=== PATIENT | female | born 1985 | race Caucasian/White ===

== ENCOUNTER 2018-10-12 10:57 | Day surgery (SDC) | payer SELFPAY ==
[~2018-10-12] VITALS: Ht 162.6 cm; Wt 93.0 kg
[~2018-10-12 10:57] MED LIST: LR 1,000 ML IV SCH; MULTCAP PO
[2018-10-12 11:30] LABS: URINE PREG TEST NEGATIVE (NEGATIVE)
[2018-10-12] MEDS ORDERED: PROPOFOL 200 MG/20 ML VIAL As Ordered ONE (12:00)
[2018-10-12] MEDS ORDERED: LIDOCAINE 2% INJ 100 MG/5 ML SDV (FOR ANES.) As Ordered ONE (12:01)
[2018-10-12] MEDS ORDERED: fentaNYL 250 MCG/5 ML INJECTION (J3010) As Ordered ONE (12:01)
[2018-10-12] MEDS ORDERED: dexameTHASONE 4 MG/ML 1ML VIAL (J1100) As Ordered ONE (12:01)
[2018-10-12] MEDS ORDERED: KETOROLAC 60 MG/2 ML VIAL (J1885) As Ordered ONE (12:01)
[2018-10-12] MEDS ORDERED: ONDANSETRON 4MG/2ML VIAL (J2405) As Ordered ONE (12:01)
[2018-10-12] MEDS ORDERED: SUGAMMADEX SODIUM 500 MG/5 ML VIAL (BRIDION) As Ordered ONE (12:01)
[2018-10-12] MEDS ORDERED: ROCURONIUM BROMIDE 50 MG/5 ML VIAL As Ordered ONE (12:01)
[2018-10-12] MEDS ORDERED: MIDAZOLAM INJ 2 MG/2 ML VIAL (J2250) As Ordered ONE (12:02)
[2018-10-12] MEDS ORDERED: LIDOCAINE W/EPINEPHRINE 1% 20ML VIAL As Ordered ONE (12:50)
[2018-10-12] MEDS ORDERED: HYDROMORPHONE HCL 0.5 MG/ 0.5 ML SYRINGE (J1170 PER 1) As Ordered ONE (15:14)
[2018-10-12] MEDS ORDERED: fentaNYL 100 MCG/2 ML INJECTION (J3010) IV PRN (15:30)
[2018-10-12] MEDS ORDERED: NORCO, ANEXSIA 5/325MG TABLET (HYDROcodone/ACETAMINOPHEN) PO PRN ×2 (15:30→16:30)
[2018-10-12] MEDS ORDERED: HYDROMORPHONE HCL 0.5 MG/ 0.5 ML SYRINGE (J1170 PER 1) IV PRN (15:30)
[2018-10-12] MEDS: IBUPROFEN 600 MG TAB PO SCH ×2 (20:45→21:42)
[2018-10-12] MEDS ORDERED: IBUPROFEN 600 MG TAB As Ordered ONE (20:48)
[2018-10-12 21:45] VITALS: BP 105/66
--- NOTE | 2018-10-15 14:30 | RO ---
DATE OF PROCEDURE: 10/12/2018 PREOPERATIVE DIAGNOSIS: Incarcerated ventral hernia. POSTOPERATIVE DIAGNOSIS: Incarcerated ventral hernia and incarcerated recurrent umbilical hernia. SURGEON: Dr. Juanjo Berg MUNITIONS WORKER: Kenia Nunez ANESTHESIA: General. ESTIMATED BLOOD LOSS: 10. COMPLICATIONS: None. INDICATIONS FOR PROCEDURE: The patient is a 33-year-old female with a large lump inferior to her umbilicus and found to have a large hernia. Recommendation was to proceed with laparoscopic repair. Risks and benefits of the procedure, not limited to but including bleeding, infection, hernia recurrence, hernia formation, damage to surrounding structures, and need for further surgery were discussed in detail with the patient and informed consent was obtained and the procedure was planned. DESCRIPTION OF PROCEDURE: The patient was brought back to operating room seven. After sufficient sedation the abdomen sterilely prepped and draped. Next a time-out was done to confirm proper patient and proper procedure. A 5 mm incision made in the left upper quadrant and Veress needle was inserted. The abdomen was insufflated to 15 mmHg. Next the Veress needle was removed. A 5 mm OptiVu port was used to gain access to the abdomen. Once the abdomen was entered, there were two large hernias that were identified. Another 5 mm port was then placed in the left lower quadrant. Small bowel was entering a large defect inferior to the umbilicus in the midline. I was able to grab onto the small bowel and gently return it back inside the abdomen. I would say at least 25% of the small intestine was within this large hernia sac. Once that was back inside, there was still some omentum that was adhesed up inside of there. I was able to gently retract that out using the Enseal. Once that was completed and all the hernia sac contents were evacuated from there, I was able to take down some preperitoneal adhesions inferiorly to that using the Enseal to create a large surface on the fascia to place a mesh. Next, there was an umbilical defect as well about the same size containing the falciform ligament and what appeared to be up balled up portion of mesh from a previous repair. I was able to remove the majority of the previous mesh that was balled up as well as some omentum that was adhered up inside of it. Once all that was completed, I took down the rest of the falciform ligament superiorly to create another landing zone for placing some mesh. Once the area was all cleaned and up, I measured it on the outside to determine the size of mesh to use. The defect in total combining both of the defect together with the skin bridge between them measured about 10 cm wide x 12 cm in length. I took a 20 x 25 cm mesh and cut about 2 cm off of both sides and placed it over top of the abdominal wall and palpated through to make sure it would be large enough to cover. After doing so, I placed some transfascial sutures in the mesh, placed the mesh inside the abdomen and brought the sutures out through the abdominal wall using a Timothy-Maurer needle. Once that was done we held those in place. I used to three Secure Strap tackers to put two rows of tacks around the perimeter of the mesh and some through the middle of the mesh. Once this was completed, the mesh appeared to be well intact to complete the tack placement. I did have to place one additional 5 mm port in the right midabdomen. Once the mesh was completely attached, we reviewed it from all angles to make sure that it was completely covered. The transfascial sutures were then tied. The abdomen was desufflated. Skin incisions were closed #4-0 Vicryl subcuticular sutures. The abdomen was cleaned and dried. Steri-Strips, 4x4 and tape were applied, thus ending the procedure.
== END 2018-10-12 21:50 | disposition home or self-care (01) ==
LOC: M SDC 10:57
PROVIDERS: ATTEND Surgery
DX: K43.6 Other and unspecified ventral hernia with obstruction, without gangrene (principal); K42.0 Umbilical hernia with obstruction, without gangrene
CPT/HCPCS: 49653; 84703; 88302; C1781; J0690; J1100; J1885; J2250; J2405; J3010

== ENCOUNTER → 2022-10-07 | Outpatient (CLI) | payer SELFPAY ==
[~2022-10-07] MED LIST changes: -LR 1,000 ML IV SCH
== END ==
LOC: M WHC 15:06
PROVIDERS: ATTEND Advanced Practice Midwife
DX: O34.593 Maternal care for other abnormalities of gravid uterus, third trimester (principal); R19.00 Intra-abdominal and pelvic swelling, mass and lump, unspecified site; K46.9 Unspecified abdominal hernia without obstruction or gangrene; Z3A.33 33 weeks gestation of pregnancy

== ENCOUNTER → 2022-10-24 | Outpatient (REF) | payer SELFPAY | LOC: M SFHCWAGY 15:35 | PROVIDERS: ATTEND Obstetrics & Gynecology | DX: O09.523 Supervision of elderly multigravida, third trimester (principal); Z3A.00 Weeks of gestation of pregnancy not specified ==